=== PATIENT | female | born 2005 | race Hispanic/Latino ===

== ENCOUNTER 2025-02-13 17:02 | Emergency (ER) | payer MEDICAID, OTHER ==
[~2025-02-13] VITALS: Ht 157.5 cm; Wt 111.1 kg
[~2025-02-13 17:02] MED LIST: CIME400T PO; DIPH50 PO; PRED50TA2 PO
--- NOTE | 2025-02-13 17:50 | ERN ---
ED Note History of Present Illness Stated Complaint: FINGER INJURY Chief Complaint: Finger Injury Time Seen by MD: 17:36 Time Seen by Midlevel: 17:37 Dictation: 20-year-old female presents to the emergency department due to report of having pain to the right nail due to having sustained a small injury 2 days ago at her house. Patient states that she was attempting to grab her brush from the floor when she accidentally bumped her 5th digit against a foreign object. At that time, she rated her level of discomfort as a 3/10 but only with movement of the nail. Currently, she states that the situation is the same in regards to fee ling discomfort only with movement of the nail. Upon initial evaluation, there is no active bleeding and there is a normal neurovascular examination. Allergies: Coded Allergies: No Known Allergies (Unverified Allergy, Unknown, 09/15/22) Emergency Care [employer]: None Home Meds Active Scripts Cimetidine (Cimetidine) 400 Mg Tablet, 400 MG PO BID for allergy, #30 TAB 0 Refills Prov:EMILY SMILEY MD 09/15/22 Prednisone (Prednisone) 50 Mg Tablet, 50 MG PO DAILY for 5 Days, #5 TAB 0 Refills Prov:EMILY SMILEY MD 09/15/22 Diphenhydramine HCl (Benadryl) 50 Mg Cap, 50 MG PO Q6H for itching/rash, #20 CAP 0 Refills Prov:EMILY SMILEY MD 09/15/22 Past Medical History Past Medical History: No Pertinent History Surgical History: Tonsillectomy Surgical History Other: LEFT KNEE PSYCH History: no pertinent psych hx RN Note Reviewed/Agreed w/PFSH: Yes Review of System Dictation MS/Extremity: Pain to the 5th digit of the right hand Initial Vital Sign VS Vital Signs Date Time Temp Pulse Resp B/P (MAP) Pulse Ox O2 Delivery O2 Flow Rate FiO2 02/13/25 17:07 98.4 108 18 155/91 99 0 Physical Exam Dictation General: awake, alert, NAD Head/Face: Normocephalic, atraumatic Eyes: PERRL, EOMI ENT: Oral mucosa moist Neck: Trachea midline, supple Cardiovascular: RRR, no edema Respiratory: Symmetrical, non-labored Abdomen: Soft, non-tender, non-distended, no guarding. Skin: Warm, dry, good turgor, no rash MS/Extremity: Tenderness to the distal portion of the 5th digit of the right hand. No nail avulsion noted. Neuro: COAx4, GCS 15, steady gait, Psych: Normal behavior, mood, and affect normal ED Course ED Course Vital Signs Date Time Temp Pulse Resp B/P (MAP) Pulse Ox O2 Delivery O2 Flow Rate FiO2 02/13/25 17:07 98.4 108 18 155/91 99 0 Medical Decision Making MDM MDM: Differential diagnosis: Finger sprain right hand, partial nail avulsion. Rationale: Tests considered and ordered secondary to shared decision making include: Previous outside records reviewed: Old ER visits. Risk of complication and/or morbidity or mortality of patient management: None Medications-Per medication reconciliation Need for hospitalization: Patient does not meet criteria for hospitalization. Need for emergency major/minor surgery: No There are no social concerns with this patient. Prescription drug management Prescriptions will include symptomatic care Patient's prior external medical records from other ER visits were reviewed by me as indicated. Prior testing and results from previous visits were reviewed. Prior tests were taken into account with medical decision making and resource utilization, independent historian/historians were used to obtain complete medical history. I independently interpreted the test that were performed, results were reviewed by me and considered findings on radiology if ordered. Medical management and examination interpretation discussions were had by me with other qualified healthcare professionals as indicated for the patient's care. DX & DISP Disposition: Discharge Departure Impression: Primary Impression: Injury of tip of finger of right hand Condition: Stable Referrals: SANNA WAITE MD (PCP) Time of Disposition: 17:50 CASSIE RIOS Feb 13, 2025 17:50
[2025-02-13 17:56] VITALS: BP 137/74; PULSE 92; RESP 18; TEMP 98.4; O2SAT 99
== END 2025-02-13 17:59 | disposition home or self-care (01) ==
LOC: EDH 17:02
DX: S69.91XA Unspecified injury of right wrist, hand and finger(s), initial encounter (principal); Z79.52 Long term (current) use of systemic steroids; Z90.89 Acquired absence of other organs; X58.XXXA Exposure to other specified factors, initial encounter; Y93.89 Activity, other specified; Y92.89 Other specified places as the place of occurrence of the external cause; Y99.8 Other external cause status
CPT/HCPCS: 99281; 99282